=== PATIENT | male | born 1980 | race Two or more races ===

== ENCOUNTER 2017-08-06 14:12 | Emergency (ER) | payer OTHER ==
[2017-08-06 14:28] VITALS: TEMP 98.1; BMI 29.7
--- NOTE | 2017-08-06 14:29 | PDOC ---
Rapid Medical Evaluation Time Seen by Provider: 08/06/17 14:25 Medical Evaluation: Allergies Allergy/AdvReac Type Severity Reaction Status Date / Time No Known Allergies Allergy Verified 07/07/17 09:25 08/06/17 14:25 I have performed a brief in-person evaluation of this patient. The patient presents with a chief complaint of: cough x 1 month. Also c/o L upper and lower back pain x 1 week. S/p placement of spinal cord simulator to lower back for left leg pain 10/16 as per pt Pertinent physical exam findings:Appears uncomfortable w/ HR to 115 I have ordered the following:CXR The patient will proceed to the ED for further evaluation.
[2017-08-06] MEDS ORDERED: morphine CARPU-JECT 4 MG/1 ML DISP.SYRIN IVPUSH ONE (15:26)
[2017-08-06] MEDS ORDERED: ALBUTEROL SO4 2.5/IPRATROPIUM 0.5 INH SOL 3 ML VIAL.NEB. NEB ONE ×2 (15:26→16:37)
--- NOTE | 2017-08-06 16:26 | PDOC ---
Attending Attestation - Resident Resident Name: Tammy Clark - ED Attending Attestation I have performed the following: I have examined & evaluated the patient, The case was reviewed & discussed with the resident, I agree w/resident's findings & plan, Exceptions are as noted - HPI HPI: 08/06/17 16:15 37yo M hx occupational leg injury s/p R lumbar spinal stimulator placed 09/2016 p /w 1 month of increased back pain over site of stimulator and increasing pain over his legs. He reports taking percocet 10/325mg and advil for pain, but has not taken his percocet in 24 hours. Spinal stimulator was placed by Dr. Wili Crane who he has not contacted since onset of his pain or followed up with since surgery. Pt states he came in today because he is hoping to have the spinal stimulator removed here. He states that since his workers comp case was closed, he no longer has insurance to cover outpatient visits prompting him to come to the ED. Also reports dry cough for several weeks and 3 days of sore throat. He was seen here for the same 1 month ago, was given albuterol and a Z- pack. He reports some relief but the cough persisted. Denies fevers, chills, CP, SOB, LE weakness, urinary/stool incontinence or retention, numbness - Physicial Exam PE: 08/06/17 19:16 GENERAL: Awake, alert, and fully oriented, in no acute distress HEAD: No signs of trauma EYES: PERRLA, EOMI, sclera anicteric, conjunctiva clear ENT: Auricles normal inspection, hearing grossly normal, nares patent, oropharynx clear without exudates. Moist mucosa NECK: Normal ROM, supple, no lymphadenopathy, JVD, or masses LUNGS: Breath sounds equal, clear to auscultation bilaterally. No wheezes, and no crackles HEART: Regular rate and rhythm, normal S1 and S2, no murmurs, rubs or gallops ABDOMEN: Soft, nontender, normoactive bowel sounds. No guarding, no rebound. No masses EXTREMITIES: Normal range of motion, no edema. No clubbing or cyanosis. No cords, erythema, or tenderness BACK: multiple midline thoracic and lumbar spinal scars that are clean dry and intact. No midline spinal cervical, lumbar ttp. SubQ spinal stimulator palpable in right lower lumbar spine with no overlying erythema and ttp. NEUROLOGICAL: Normal speech, cranial nerves intact, negative pronator drift, 5/ 5 strength in all 4 extremities, normal sensation to light touch in all 4 extremities, normal cerebellar exam, normal gait, normal reflexes and tone SKIN: Warm, Dry, normal turgor, no rashes or lesions noted. - Medical Decision Making 08/06/17 19:31 37-year-old male presents for removal of spinal stimulator as well as for 1 month of persistent cough. Will attempt to assist with follow-up with the neurosurgeon's partner in the office for management of the patient's final stimulator. Although he presents with back pain, he reports he has not taken his home dose of Percocet or ibuprofen in 24 hours. Discussed with patient that he must be compliant with his home dose medications to sufficiently control pain. With regards to the cough will obtain a chest x-ray to rule out an infiltrate and give the patient a nebulizer treatment for symptomatic control. Since he was put on a Z-Bong one month ago with minimal improvement will consider steroids if chest x-ray is negative for infiltrate. 08/06/17 19:46 Labs unremarkable. Chest x-ray negative for infiltrate. Likely bronchitis. Patient feels mildly improved after nebulizer treatment, will prescribe steroids for symptomatic control. With regards to management of his spinal stimulator we were able to get in touch with Dr. Crane's partner, Dr. Gianfranco Ravi who stated that the patient can call the office for removal of the spinal stimulator as it was placed in their office. We discussed this with the patient and provided him with the number to call. I advised patient to make an attempt to have it removed and discuss that he only has emergency medicaid with the office to see if they can work out a payment plan. The patient expressed understanding of this plan. If he has any difficulty or is refused evaluation due to his insurance issues, I told him he can return to the emergency department for an alternate plan. I discussed the physical exam findings, ancillary test results and final diagnoses with the patient. I answered all of the patient's questions. The patient was satisfied with the care received and felt comfortable with the discharge plan and treatment plan. The patient will call their primary care physician within 24 hours to arrange follow-up and will return to the Emergency Department with any new, persistent or worsening symptoms.
[2017-08-06] MEDS ORDERED: morphine SULFATE 4 MG/ML VIAL ONE (16:37)
[2017-08-06 16:53] LABS: BASOPHIL 1.3 % (0-2.0); EOSINOPHIL 4.9 % (0-4.5); MCH 29.2 pg (25.7-33.7); MCHC 33.6 g/dl (32.0-35.9); MEAN PLT VOLUME 7.8 fl (7.5-11.1); NEUTROPHILS 48.7 % (42.8-82.8); PLATELET COUNT 228 K/MM3 (134-434); RDW 13.5 % (11.9-15.9); WHITE BLOOD COUNT 5.9 K/mm3 (4.0-10.0)
--- NOTE | 2017-08-06 17:09 | PDOC ---
History of Present Illness - General Chief Complaint: Back Pain Stated Complaint: BACK PAIN Time Seen by Provider: 08/06/17 14:25 - History of Present Illness Initial Comments: 08/06/17 16:55 37yo man with PMH of back stimulator placed 10/23/16 for occupational injury who presents to the ED with 1 month of worsening back pain. He takes Ibuprofen and 10-325 Percocet, which he reports is no longer controlling his pain. Last dose of Percocet was yesterday. His worker compensation case was recently closed, and he has been unable follow-up with his neurosurgeon and pain physician. Denies any changes in his sensation of his lower extremities, no urinary or fecal incontinence. He has also had persistent dry cough for the past 1 month s/p Zpack and albuterol Rx here on 07/07, which he completed. He reports subjective fever last night and sore throat. His daughter was sick at home about a month ago, but has since recovered. No other sick contacts or recent travel. He had a flu shot this season. He has been taking Theraflu, Robitussin, and Dayquil for symptomatic control. Past History - Past Medical History Allergies/Adverse Reactions: Allergies Allergy/AdvReac Type Severity Reaction Status Date / Time No Known Allergies Allergy Verified 08/06/17 14:28 Home Medications: Ambulatory Orders Azithromycin [Zithromax -] 250 mg PO UTDICT #6 tab 07/07/17 Benzonatate [Tessalon Pearls -] 100 mg PO TID 07/07/17 Prednisone [Deltasone -] 40 mg PO DAILY #6 tablet 08/06/17 COPD: No - Immunization History Immunization Up to Date: No - Suicide/Smoking/Psychosocial Hx Smoking History: Never smoked Have you smoked in the past 12 months: No Hx Alcohol Use: No Drug/Substance Use Hx: No Substance Use Type: None Review of Systems - Review of Systems Constitutional: Yes: Fever HEENTM: Yes: Throat Pain Respiratory: Yes: Cough : No: Dysuria, Incontinence Musculoskeletal: Yes: See HPI Integumentary: No: Erythema Neurological: Yes: Symptoms reported *Physical Exam - Vital Signs Last Vital Signs Temp Pulse Resp BP Pulse Ox 98.1 F 115 H 16 124/76 100 08/06/17 14:25 08/06/17 14:25 08/06/17 14:25 08/06/17 14:25 08/06/17 14:25 - Physical Exam General Appearance: Yes: Nourished, Appropriately Dressed HEENT: positive: Pharyngeal Erythema (mild) Neck: positive: Supple Respiratory/Chest: positive: Lungs Clear, Normal Breath Sounds Cardiovascular: positive: Regular Rhythm, Regular Rate, S1, S2 Vascular Pulses: Dorsalis-Pedis (R): 2+, Doralis-Pedis (L): 2+ Gastrointestinal/Abdominal: positive: Normal Bowel Sounds, Soft. negative: Tender Musculoskeletal: positive: Other (palpable stimulator on R lower lumbar region that is ttp; vertebral and paraspinal ttp from sacral to mid-thoracic region; sensation intact ) Extremity: negative: Pedal Edema, Calf Tenderness Neurologic: positive: agile developer II-XII NML intact, Fully Oriented, Alert, Normal Mood/ Affect, Other (LE sensation intact, R>L 4/5 LE weakness; ambulation intact ) ED Treatment Course - LABORATORY CBC & Chemistry Diagram: 08/06/17 16:45 08/06/17 16:45 - RADIOLOGY Radiology Studies Ordered: Category Date Time Status CHEST PA & LAT [RAD] Stat Radiology 08/06/17 16:37 Ordered - Medications Given in the ED: ED Medications Discontinued Medications Generic Name Dose Route Start Last Admin Trade Name Freq PRN Reason Stop Dose Admin Albuterol/Ipratropium 1 amp 08/06/17 15:26 08/06/17 16:51 Duoneb - NEB 08/06/17 15:27 1 amp ONCE ONE Administration Morphine Sulfate 4 mg 08/06/17 15:26 08/06/17 16:51 Morphine Injection - IVPUSH 08/06/17 15:27 4 mg ONCE ONE Administration Medical Decision Making - Medical Decision Making 08/06/17 19:21 37yo man with PMH of occupational injury s/p spinal stimulator in Sep 2016 who presents with worsening back pain. Attempts were made to contact his Neurosurgeon, Dr. Joanne Crane, however, per his office Dr. Crane is no longer with the [place] practice. Patient is requesting that his spinal stimulator be removed. Dr. Crane's former office relayed that Dr. Ravi ([phone] or [phone]) removes stimulators, and suggested that the patient can call on Wednesday to discuss this further. Patient given 4mg Morphine for pain with good effect. Patient was counseled to call Dr. Ravi's office, and that he should continue to take Percocet as directed by his pain physician. Regarding his persistent cough, CXR was completed and revealed no focal infiltrates. Patient was afebrile with no leukocytosis. Given he just completed a course of antibiotics within the past month, will hold off on further antibiotics at this time. Will give a short course of steroids and instruct the patient to continue using his Albuterol inhaler. Patient can ambulate and is stable to be discharged home. CBC, BMP 08/06/17 16:45 08/06/17 16:45 08/06/17 20:37 *DC/Admit/Observation/Transfer Diagnosis at time of Disposition: Back pain - Discharge Dispostion Disposition: HOME Condition at time of disposition: Stable Admit: No - Prescriptions Prescriptions: Prednisone [Deltasone -] 40 mg PO DAILY #6 tablet - Referrals - Patient Instructions Printed Discharge Instructions: DI for Low Back Pain, DI for Cough -- Adult Additional Instructions: Please call Dr. Gianfranco Ravi (Neurosurgery) at [phone] or to discuss the removal of your spinal stimulator. Make sure to let the office know that Dr. Joanne Crane had placed the stimulator in September. You can take the Percocet as prescribed for your back pain. Take 1-2 puffs of your Albuterol inhaler every 4 hours for the next 2-3 days. Starting tomorrow, take 1 tablet of Prednisone 40mg (a steroid) every day for the next 3 days. Please return to the Emergency Department if you have worsening shortness of breath, new, or concerning symptoms. - Post Discharge Activity
[2017-08-06 17:26] LABS: ANION GAP 5 (8-16); BILIRUBIN,TOTAL 0.2 mg/dL (0.2-1.0); CALCIUM 8.9 mg/dL (8.5-10.1); CO2 30 mmol/L (21-32); CREATININE 0.6 mg/dL (0.7-1.3); GLUCOSE,RANDOM 110 mg/dL (74-106); SGPT/ALT 49 U/L (12-78)
[2017-08-06 17:33] LABS: ALK PHOS 115 U/L (45-117); SGOT/AST 23 U/L (15-37)
[2017-08-06] MEDS ORDERED: predniSONE 20 MG TABLET (UD) PO ONE (18:34)
[2017-08-06] MEDS ORDERED: predniSONE 20 MG TABLET (UD) ONE (19:35)
[2017-08-06 19:44] VITALS: BP 120/82; PULSE 95
== END 2017-08-06 19:47 | disposition home or self-care (01) ==
LOC: JER 14:12
PROC: 3E0F7GC Introduction of Other Therapeutic Substance into Respiratory Tract, Via Natural or Artificial Opening (ICD-10-PCS; principal; 2017-08-06)
PROC: 3E0333Z Introduction of Anti-inflammatory into Peripheral Vein, Percutaneous Approach (ICD-10-PCS; 2017-08-06)
DX: M54.9 Dorsalgia, unspecified (principal)
CPT/HCPCS: 36415; 71020-TC; 80053; 85025; 94640; 96374; 99282-25

== ENCOUNTER 2017-08-09 13:42 | Emergency (ER) | payer OTHER ==
[2017-08-09 13:46] VITALS: BMI 29.7
--- NOTE | 2017-08-09 16:38 | PDOC ---
History of Present Illness - General History Source: Patient Exam Limitations: No Limitations - History of Present Illness Initial Comments: 08/09/17 16:39 The patient is a year old male, with a significant past medical history of who presents to the emergency department with back pain secondary to back stimulator. Patient is requesting the back stimulator to be removed. Patient describes back pain is 7/10 in severity, non radiating, constant with associated tingling and numbness. Patient came to the ED on 08/06/2017 for the same complaints and was discharged home with pain medications. Patient returns to the ED for re-evaluation. Patient denies chest pain, headache or dizziness. Patient denies fever, chills, abdominal pain, nausea, vomit, diarrhea or constipation. Patient denies dysuria , frequency, urgency or hematuria. Patient denies sick contacts or recent travel. <Jessenia Hester - Last Filed: 08/09/17 16:39> <Emanuel Sandy - Last Filed: 08/09/17 16:54> - General Chief Complaint: Back Pain Stated Complaint: BACK PAIN Past History <Jessenia Hester - Last Filed: 08/09/17 16:39> - Past Medical History COPD: No - Immunization History Immunization Up to Date: No - Suicide/Smoking/Psychosocial Hx Smoking History: Never smoked Have you smoked in the past 12 months: No Information on smoking cessation initiated: No Hx Alcohol Use: No Drug/Substance Use Hx: No Substance Use Type: None <Emanuel Sandy - Last Filed: 08/09/17 16:54> - Past Medical History Allergies/Adverse Reactions: Allergies Allergy/AdvReac Type Severity Reaction Status Date / Time No Known Allergies Allergy Verified 08/09/17 13:43 Home Medications: Ambulatory Orders Azithromycin [Zithromax -] 250 mg PO UTDICT #6 tab 07/07/17 Benzonatate [Tessalon Pearls -] 100 mg PO TID 07/07/17 Prednisone [Deltasone -] 40 mg PO DAILY #6 tablet 08/06/17 Review of Systems - Review of Systems Able to Perform ROS?: Yes Comments:: 08/09/17 16:39 GENERAL/CONSTITUTIONAL: No fever or chills. No weakness. HEAD, EYES, EARS, NOSE AND THROAT: No change in vision. No ear pain or discharge. No sore throat. CARDIOVASCULAR: No chest pain or shortness of breath. RESPIRATORY: No cough, wheezing, or hemoptysis. GASTROINTESTINAL: No nausea, vomiting, diarrhea or constipation. GENITOURINARY: No dysuria, frequency, or change in urination. MUSCULOSKELETAL: +back pain. No joint or muscle swelling or pain. No neck pain. SKIN: No rash NEUROLOGIC: No headache, vertigo, loss of consciousness, or change in strength/ sensation. ENDOCRINE: No increased thirst. No abnormal weight change. HEMATOLOGIC/LYMPHATIC: No anemia, easy bleeding, or history of blood clots. ALLERGIC/IMMUNOLOGIC: No hives or skin allergy. <Azam Hesterhel - Last Filed: 08/09/17 16:39> *Physical Exam - Vital Signs Last Vital Signs Temp Pulse Resp BP Pulse Ox 98.7 F 124 H 18 116/83 100 08/09/17 13:44 08/09/17 13:44 08/09/17 13:44 08/09/17 13:44 08/09/17 13:44 - Physical Exam Comments: 08/09/17 16:39 GENERAL: Awake, alert, and fully oriented, in no acute distress HEAD: No signs of trauma EYES: PERRLA, EOMI, sclera anicteric, conjunctiva clear ENT: Auricles normal inspection, hearing grossly normal, nares patent, oropharynx clear without exudates. Moist mucosa NECK: Normal ROM, supple, no lymphadenopathy, JVD, or masses LUNGS: Breath sounds equal, clear to auscultation bilaterally. No wheezes, and no crackles HEART: Regular rate and rhythm, normal S1 and S2, no murmurs, rubs or gallops ABDOMEN: Soft, nontender, normoactive bowel sounds. No guarding, no rebound. No masses EXTREMITIES: Normal range of motion, no edema. No clubbing or cyanosis. No cords, erythema, or tenderness NEUROLOGICAL: Cranial nerves II through XII grossly intact. Normal speech, normal gait SKIN: Warm, Dry, normal turgor, no rashes or lesions noted. <Jessenia Hester - Last Filed: 08/09/17 16:39> - Vital Signs Last Vital Signs Temp Pulse Resp BP Pulse Ox 98.7 F 124 H 18 116/83 100 08/09/17 13:44 08/09/17 13:44 08/09/17 13:44 08/09/17 13:44 08/09/17 13:44 <Emanuel Sandy - Last Filed: 08/09/17 16:54> *DC/Admit/Observation/Transfer - Attestations Scribe Attestion: 08/09/17 16:39 Documentation prepared by Jessenia Hester, acting as medical administrative technician for Emergency Dept,Physician, DO. <Jessenia Hester - Last Filed: 08/09/17 16:39> - Discharge Dispostion Admit: No - Attestations Physician Attestion: 08/09/17 16:38 I, Dr. Emanuel Sandy, attest that this document has been prepared under my direction and personally reviewed by me in its entirety. I further attest, that it accurately reflects all work, treatment, procedures and medical decision -making performed by me. <Emanuel Sandy - Last Filed: 08/09/17 16:54> Diagnosis at time of Disposition: Chronic back pain Qualifiers: Back pain location: low back pain Back pain laterality: unspecified Sciatica presence: unspecified whether sciatica present Qualified Code(s): M54.5 - Low back pain; G89.29 - Other chronic pain; G89.29 - Other chronic pain - Discharge Dispostion Disposition: HOME Condition at time of disposition: Unchanged/Unknown - Patient Instructions Printed Discharge Instructions: DI for Low Back Pain Additional Instructions: Dandre- Please keep your appointments to get signed up for insurance and see the doctors at [facility]- Dr. Emanuel Sandy
[2017-08-09] MEDS ORDERED: KETOROLAC TROMETHAMINE 60 MG/2 ML VIAL IM ONE (16:42)
[2017-08-09] MEDS ORDERED: KETOROLAC TROMETHAMINE 60 MG/2 ML VIAL ONE (16:42)
[2017-08-09 17:13] VITALS: BP 125/71; PULSE 81; TEMP 98.1
== END 2017-08-09 17:14 | disposition home or self-care (01) ==
LOC: JER 13:42
PROC: 3E0233Z Introduction of Anti-inflammatory into Muscle, Percutaneous Approach (ICD-10-PCS; principal; 2017-08-09)
DX: M54.5 Low back pain (principal); G89.29 Other chronic pain
CPT/HCPCS: 99282-25

== ENCOUNTER 2018-10-24 10:52 | Emergency (ER) | payer OTHER ==
[2018-10-24 11:04] VITALS: BP 138/91; PULSE 94; TEMP 97.8; BMI 30.4
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
== END 2018-10-24 11:56 | disposition home or self-care (01) ==
LOC: JERFT 10:52
DX: M54.12 Radiculopathy, cervical region (principal); V43.52XA Car driver injured in collision with other type car in traffic accident, initial encounter; Y92.414 Local residential or business street as the place of occurrence of the external cause; Y93.89 Activity, other specified; Y99.8 Other external cause status
CPT/HCPCS: 99281-25

== ENCOUNTER 2018-12-22 09:03 | Emergency (ER) | payer OTHER ==
[2018-12-22 09:12] VITALS: BP 131/83; PULSE 110; TEMP 98; BMI 30.6
--- NOTE | 2018-12-22 09:51 | PDOC ---
History of Present Illness - General Chief Complaint: Pain, Acute Stated Complaint: LACERATION ON PENIS Time Seen by Provider: 12/22/18 09:21 History Source: Patient - History of Present Illness Timing/Duration: reports: constant Past History - Past Medical History Allergies/Adverse Reactions: Allergies Allergy/AdvReac Type Severity Reaction Status Date / Time No Known Allergies Allergy Verified 12/22/18 09:06 Home Medications: Ambulatory Orders Cyclobenzaprine HCl [Flexeril 10 mg] 10 mg PO HS PRN #10 tablet 10/24/18 Methylprednisolone [Medrol Dose Bong] 4 mg PO ASDIR #21 tablet 10/24/18 Hydrocortisone Acetate [Anusol Hc Suppository -] 25 mg RC DAILY #28 supp.rect Polyethylene Glycol 3350 [Miralax (For Daily Use) -] 17 gm PO DAILY #1 bottle COPD: No Disorders: Yes (GERD) - Immunization History Immunization Up to Date: No - Suicide/Smoking/Psychosocial Hx Smoking History: Never smoked Have you smoked in the past 12 months: No Hx Alcohol Use: No Drug/Substance Use Hx: No Substance Use Type: None Review of Systems - Review of Systems Constitutional: No: Chills, Fever, Unexplained wgt Loss ABD/GI: Yes: Blood Streaked Bowels. No: Constipated, Diarrhea, Nausea, Vomiting , Abdominal cramping *Physical Exam - Vital Signs Last Vital Signs Temp Pulse Resp BP Pulse Ox 98.0 F 110 H 18 131/83 99 12/22/18 09:09 12/22/18 09:09 12/22/18 09:09 12/22/18 09:09 12/22/18 09:09 - Physical Exam General Appearance: Yes: Appropriately Dressed. No: Apparent Distress HEENT: positive: Normal Voice Neck: positive: Supple Respiratory/Chest: negative: Respiratory Distress Gastrointestinal/Abdominal: positive: Soft. negative: Tender Rectal Exam: positive: other (1 small non-thrombosed external hemorrhoid, +ttp) Integumentary: positive: Dry, Warm Neurologic: positive: Fully Oriented, Alert, Normal Mood/Affect Medical Decision Making - Medical Decision Making 12/22/18 09:48 38-year-old male, history of ?GERD, here with persistent rectal pain. Patient states a month ago, developed pain and swelling to rectal area. Was evaluated by his PMD with no clear diagnosis, but states he was given diclofenac gel which does not alleviate pain. Reports intermittent bleeding, mostly with bowel movements. Denies any constipation and no abdominal pain, nausea, vomiting, f/c. Patient here for another evaluation and for pain control. Patient currently does not have insurance but is able to see a primary care physician at [facility] through [facility] see exam Hemorrhoid 1 small non-thrombosed external hemorrhoid -dc w/ anusol, stool softeners and stiz bacth -pmd f/u for GI referral *DC/Admit/Observation/Transfer Diagnosis at time of Disposition: Hemorrhoids Qualifiers: Hemorrhoid type: unspecified Qualified Code(s): K64.9 - Unspecified hemorrhoids - Discharge Dispostion Disposition: HOME - Prescriptions Prescriptions: Hydrocortisone Acetate [Anusol Hc Suppository -] 25 mg RC DAILY #28 supp.rect Polyethylene Glycol 3350 [Miralax (For Daily Use) -] 17 gm PO DAILY #1 bottle - Referrals - Patient Instructions Printed Discharge Instructions: Hemorrhoids Additional Instructions: It appears you may have a hemorrhoid Use anusol and miralax as directed Also sit in warm to hot bath as this will help the inflammation Please follow with your PMD for referral to a door builder - Post Discharge Activity
== END 2018-12-22 10:02 | disposition home or self-care (01) ==
LOC: JER 09:03
DX: K64.9 Unspecified hemorrhoids (principal); K21.9 Gastro-esophageal reflux disease without esophagitis
CPT/HCPCS: 99281-25

== ENCOUNTER 2019-07-30 13:19 | Emergency (ER) | payer SELFPAY ==
[2019-07-30 13:32] VITALS: BP 115/78; PULSE 99; TEMP 98.5; BMI 30.9
--- NOTE | 2019-07-30 13:56 | PDOC ---
History of Present Illness - General Chief Complaint: Injury Stated Complaint: LT 3RD FINGER PAIN Time Seen by Provider: 07/30/19 13:51 History Source: Patient Exam Limitations: No Limitations - History of Present Illness Initial Comments: 07/30/19 13:53 HISTORY OF PRESENT ILLNESS: 39-year-old RHD male denies medical history presents emergency department with left middle finger pain status post slip and fall in the shower 4 days ago. Patient reports he landed with an extended hand striking the tip of his finger on the shower wall. Patient reports he noted some swelling to his knuckles and has had increased pain with flexion and extension of his fingers. He denies any numbness or tingling to the hands. No recent travel or sick contacts. PAST MEDICAL HISTORY: Denies past medical history SURGICAL HISTORY: Denies ALLERGIES: No known drug allergies REVIEW OF SYSTEMS General/Constitutional: Denies fever or chills. Denies weakness, weight change. HEENT: Denies change in vision. Denies ear pain or discharge. Denies sore throat. Cardiovascular: Denies chest pain or shortness of breath. Respiratory: Denies cough, wheezing, or hemoptysis. Gastrointestinal: Denies nausea, vomiting, diarrhea or constipation. Denies rectal bleeding. Genitourinary: Denies dysuria, frequency, or change in urination. Musculoskeletal: See HPI Skin and breasts: Denies rash or easy bruising. Neurologic: Denies headache, vertigo, loss of consciousness, or loss of sensation. Psychiatric: Denies depression or anxiety. Endocrine: Denies increased thirst. Denies abnormal weight change. Hematologic/Lymphatic: Denies anemia, easy bleeding, or history of blood clots. Allergic/Immunologic: Denies hives or skin allergy. Denies latex allergy. PHYSICAL EXAM General Appearance: Well-appearing, appropriately dressed. No apparent distress , no intoxication. Respiratory/Chest: Lungs CTAB. No shortness of breath, chest tenderness, respiratory distress, accessory muscle use. No crackles, rales, rhonchi, stridor , wheezing, dullness Cardiovascular: RRR. S1, S2. No JVD, murmur, bradycardia, tachycardia. Musculoskeletal/Extremities: Swelling present over the PIP of the left third finger. Able to fully flex and extends without any deformity or malalignment present. No bony tenderness, crepitus or step-off is present. Neurovascularly intact Integumentary: Appropriate color, dry, warm. No cyanosis, erythema, jaundice or rash 07/30/19 13:56 07/30/19 14:06 Past History - Past Medical History Allergies/Adverse Reactions: Allergies Allergy/AdvReac Type Severity Reaction Status Date / Time No Known Allergies Allergy Verified 12/22/18 09:06 Home Medications: Ambulatory Orders Cyclobenzaprine HCl [Flexeril 10 mg] 10 mg PO HS PRN #10 tablet 10/24/18 Methylprednisolone [Medrol Dose Bong] 4 mg PO ASDIR #21 tablet 10/24/18 Hydrocortisone Acetate [Anusol Hc Suppository -] 25 mg RC DAILY #28 supp.rect Polyethylene Glycol 3350 [Miralax (For Daily Use) -] 17 gm PO DAILY #1 bottle Cardiac Disorders: Yes ("extra beat") COPD: No Disorders: Yes (GERD) - Immunization History Immunization Up to Date: No - Psycho Social/Smoking Cessation Hx Smoking History: Never smoked Have you smoked in the past 12 months: No Hx Alcohol Use: No Drug/Substance Use Hx: No Substance Use Type: None *Physical Exam - Vital Signs Last Vital Signs Temp Pulse Resp BP Pulse Ox 98.5 F 99 H 19 115/78 97 07/30/19 13:27 07/30/19 13:27 07/30/19 13:27 07/30/19 13:27 07/30/19 13:27 ED Treatment Course - RADIOLOGY Radiology Studies Ordered: Category Date Time Status FINGER(S) LEFT [RAD] Stat Radiology 07/30/19 13:53 Ordered Medical Decision Making - Medical Decision Making 07/30/19 13:55 A/P: 39-year-old male with left third digit pain Most likely intra-articular hematoma X-rays Motrin 600 mg orally now Reassess 07/30/19 14:01 X-rays as read by me: No acute fractures or dislocations present. Soft tissue swelling is present. Baseball splint Discharge home with orthopedic follow-up I discussed the physical exam findings, ancillary test results and final diagnoses with the patient. I answered all of the patient's questions. The patient was satisfied with the care received and felt comfortable with the discharge plan and treatment plan. The patient will call their primary care physician within 24 hours to arrange follow-up and will return to the Emergency Department with any new, persistent or worsening symptoms. 07/30/19 14:04 Discharge - Discharge Information Problems reviewed: Yes Clinical Impression/Diagnosis: Finger pain, left Condition: Stable Disposition: HOME - Admission No - Follow up/Referral Referrals: Malcom Rao MD [Staff Physician] - - Patient Discharge Instructions Additional Instructions: Take Tylenol or Motrin as needed for pain. 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 Keep your fingers taped together to help splint on your finger to allow finger to rest. If symptoms do not improve within the next 7 days, call orthopedist for reevaluation. The orthopedist number has been provided for you. This orthopedist is a hand specialist. Return to the emergency department for any new or worsening symptoms. Thank you very much for choosing us to provide your emergent health care needs. - Post Discharge Activity
[2019-07-30] MEDS ORDERED: IBUPROFEN 600 MG TABLET (FP) PO ONE ×2 (14:07→14:08)
== END 2019-07-30 14:10 | disposition home or self-care (01) ==
LOC: JERFT 13:19
PROC: 2W3KXYZ Immobilization of Left Finger using Other Device (ICD-10-PCS; principal; 2019-07-30)
DX: M79.645 Pain in left finger(s) (principal); W01.0XXA Fall on same level from slipping, tripping and stumbling without subsequent striking against object, initial encounter; Y93.89 Activity, other specified; Y92.89 Other specified places as the place of occurrence of the external cause; K21.9 Gastro-esophageal reflux disease without esophagitis; I49.9 Cardiac arrhythmia, unspecified
CPT/HCPCS: 73140-TC-LT-FY; 99281-25

== ENCOUNTER 2019-09-25 16:23 | Emergency (ER) | payer OTHER ==
--- NOTE | 2019-09-25 16:54 | PDOC ---
Rapid Medical Evaluation Chief Complaint: Weakness Time Seen by Provider: 09/25/19 16:48 Medical Evaluation: Allergies Allergy/AdvReac Type Severity Reaction Status Date / Time No Known Allergies Allergy Verified 12/22/18 09:06 09/25/19 16:51 Pt c/o: feels decreased sensation to left side of face and left arm since last night with left sided headache, no weakness Pt on brief exam: no facial drooping, normal nasolabial fold, able to close/ open eyes without difficulty, 5/5 arm strength pt ordered for: ct head Pt to proceed to the ED Discharge Disposition - Diagnosis Migraines - Discharge Dispostion Disposition: HOME Condition at time of disposition: Stable - Prescriptions Prescriptions: Ibuprofen 600 mg PO QID PRN #20 tablet PRN Reason: Pain - Referrals - Patient Instructions Printed Discharge Instructions: Migraine -- Adult Additional Instructions: Drink plenty of fluids. Follow-up with the neurologist as soon as possible. Take ibuprofen as needed. Return to the emergency room for any worsening symptoms - Post Discharge Activity Work/School Note: Back to Work
[2019-09-25 16:58] VITALS: BMI 31.8
--- NOTE | 2019-09-25 19:23 | PDOC ---
History of Present Illness - General Chief Complaint: Weakness Stated Complaint: NUMBNESS TO LEFT SIDE OF FACE Time Seen by Provider: 09/25/19 16:48 History Source: Patient - History of Present Illness Initial Comments: 09/25/19 20:08 39 year old male c/o headaches to left side of face and lips. denies nausea, vomiting, abdominal pain.+ photophobia, + phonophobia. denies taking medications for pain relief at this time PMHX: migraines previously on propanolol Past History - Past Medical History Allergies/Adverse Reactions: Allergies Allergy/AdvReac Type Severity Reaction Status Date / Time No Known Allergies Allergy Verified 12/22/18 09:06 Home Medications: Ambulatory Orders Ibuprofen 600 mg PO QID PRN #20 tablet 09/25/19 Cardiac Disorders: Yes ("extra beat") COPD: No Disorders: Yes (GERD) Comment:: 09/26/19 03:04 TBI - Immunization History Immunization Up to Date: No - Psycho Social/Smoking Cessation Hx Smoking History: Former smoker Have you smoked in the past 12 months: No Information on smoking cessation initiated: No Hx Alcohol Use: No Drug/Substance Use Hx: No Substance Use Type: None Review of Systems - Review of Systems Able to Perform ROS?: Yes Is the patient limited Turkish proficient: No Neurological: Yes: Headache, Numbness *Physical Exam - Vital Signs Last Vital Signs Temp Pulse Resp BP Pulse Ox 98.0 F 110 H 18 123/63 97 09/25/19 16:49 09/25/19 16:49 09/25/19 16:49 09/25/19 16:49 09/25/19 16:49 - Physical Exam General Appearance: Yes: Appropriately Dressed Respiratory/Chest: positive: Lungs Clear, Normal Breath Sounds Cardiovascular: positive: Regular Rhythm, Regular Rate Extremity: positive: Normal Capillary Refill, Normal Inspection Integumentary: positive: Normal Color, Dry, Warm 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 NML intact, Fully Oriented, Alert, Normal Mood/ Affect, Normal Response, Motor Strength /5 Medical Decision Making - Medical Decision Making 09/25/19 20:11 A: migraines P:" IVF reglan benadryl no headache after meds Discharge - Discharge Information Problems reviewed: Yes Clinical Impression/Diagnosis: Migraines Qualifiers: Migraine type: unspecified Status migrainosus presence: without status migrainosus Intractability: not intractable Qualified Code(s): G43.909 - Migraine, unspecified, not intractable, without status migrainosus Condition: Stable Disposition: HOME - Additional Discharge Information Prescriptions: Ibuprofen 600 mg PO QID PRN #20 tablet PRN Reason: Pain - Follow up/Referral - Patient Discharge Instructions Patient Printed Discharge Instructions: Migraine -- Adult Additional Instructions: Drink plenty of fluids. Follow-up with the neurologist as soon as possible. Take ibuprofen as needed. Return to the emergency room for any worsening symptoms - Post Discharge Activity Work/Back to School Note: Back to Work
[2019-09-25] MEDS ORDERED: METOCLOPRAMIDE HCL INJECTION 10 MG/2 ML VIAL IVPB ONE (20:12)
[2019-09-25] MEDS ORDERED: SODIUM CHLORIDE 0.9% 500 ML INFUS.BAG IV ONE (20:12)
[2019-09-25] MEDS ORDERED: KETOROLAC TROMETHAMINE 30 MG/1 ML VIAL IVPUSH ONE (20:12)
[2019-09-25] MEDS ORDERED: METOCLOPRAMIDE HCL INJECTION 10 MG/2 ML VIAL ONE ×2 (20:18→21:05)
[2019-09-25] MEDS ORDERED: KETOROLAC TROMETHAMINE 30 MG/1 ML VIAL ONE ×2 (20:18→21:06)
[2019-09-25 22:56] VITALS: BP 107/70; PULSE 96; TEMP 98.2
== END 2019-09-25 23:28 | disposition home or self-care (01) ==
LOC: JER 16:23
PROC: 3E033GC Introduction of Other Therapeutic Substance into Peripheral Vein, Percutaneous Approach (ICD-10-PCS; principal; 2019-09-25)
PROC: 3E033GC Introduction of Other Therapeutic Substance into Peripheral Vein, Percutaneous Approach (ICD-10-PCS; 2019-09-25)
PROC: 3E0333Z Introduction of Anti-inflammatory into Peripheral Vein, Percutaneous Approach (ICD-10-PCS; 2019-09-25)
DX: G43.909 Migraine, unspecified, not intractable, without status migrainosus (principal); Z87.891 Personal history of nicotine dependence; K21.9 Gastro-esophageal reflux disease without esophagitis
CPT/HCPCS: 70450-TC; 99283-25

== ENCOUNTER 2021-04-09 09:06 | Emergency (ER) | payer OTHER ==
[2021-04-09 09:10] VITALS: BP 108/77; TEMP 97; BMI 30.9
[2021-04-09] MEDS ORDERED: ACETAMINOPHEN 1000 MG/100 ML VIAL (NON FORMULARY) IVPB ONE (09:58)
[2021-04-09] MEDS ORDERED: ONDANSETRON 4 MG/2 ML VIAL IVPUSH ONE (09:58)
[2021-04-09] MEDS ORDERED: ACETAMINOPHEN INJECTION 100 ML IVPB ONE (10:10)
[2021-04-09] MEDS ORDERED: ONDANSETRON 4 MG/2 ML VIAL ONE (10:10)
[2021-04-09 10:16] LABS: BASO % 0.5 % (0-2.0); HEMOGLOBIN 14.7 GM/dL (11.7-16.9); LYMPH % 20.1 % (8-40); MCH 29.5 pg (25.7-33.7); MCHC 33.3 g/dl (32.0-35.9); MEAN CELL VOLUME 88.6 fl (80-96); MEAN PLT VOLUME 7.6 fl (7.5-11.1); MONO % 6.3 % (3.8-10.2); NEUT % 71.1 % (42.8-82.8); PLATELET COUNT 258 10^3/uL (134-434); RBC 4.97 M/mm3 (4.00-5.60); RDW 13.9 % (11.9-15.9); WHITE BLOOD COUNT 5.5 K/mm3 (4.0-10.0)
[2021-04-09 10:23] LABS: INR 1.1 (0.83-1.09); PROTHROMBIN TIME (PATIENT) 13.5 SEC (9.7-13.0)
[2021-04-09 10:41] LABS: ALBUMIN 4.2 g/dl (3.4-5.0); CALCIUM 8.6 mg/dL (8.5-10.1)
[2021-04-09 10:42] LABS: BLOOD UREA NITROGEN 16.9 mg/dL (7-18)
[2021-04-09 10:45] LABS: CREATININE 0.7 mg/dL (0.55-1.3)
[2021-04-09 10:46] LABS: BILIRUBIN,TOTAL 0.6 mg/dL (0.2-1); TOT PROT 8.2 g/dl (6.4-8.2)
[2021-04-09 11:31] LABS: EPI CELLS 1 /uL (0-25.1); HYALINE CASTS 1 /uL (0-3.1); URINE APPEARANCE CLEAR; URINE BACTERIA 6 /uL (0-1359); URINE BILIRUBIN NEGATIVE (NEGATIVE); URINE COLOR YELLOW; URINE GLUCOSE (UA) NEGATIVE (NEGATIVE); URINE KETONE NEGATIVE (NEGATIVE); URINE LEUK ESTERASE NEGATIVE (NEGATIVE); URINE NITRITE NEGATIVE (NEGATIVE); URINE PROTEIN 2+ (NEGATIVE); URINE RBC 14 /uL (0-23.9); URINE UROBILINOGEN 0.2 mg/dL (0.2-1.0); URINE WBC 3 /uL (0-25.8)
[2021-04-09 12:51] VITALS: PULSE 89
== END 2021-04-09 12:51 | disposition home or self-care (01) ==
LOC: JER 09:06
PROC: 3E0333Z Introduction of Anti-inflammatory into Peripheral Vein, Percutaneous Approach (ICD-10-PCS; principal; 2021-04-09)
PROC: 3E033GC Introduction of Other Therapeutic Substance into Peripheral Vein, Percutaneous Approach (ICD-10-PCS; 2021-04-09)
DX: R11.2 Nausea with vomiting, unspecified (principal); R19.7 Diarrhea, unspecified
CPT/HCPCS: 36415; 74177-TC; 80053; 81003; 85025; 85610; 86850; 86900; 86901; 99285-25; J0131; Q9967